=== PATIENT | male | born 1990 | race Caucasian/White ===

== ENCOUNTER → 2016-07-29 | Outpatient (CLI) | payer OTHER | LOC: RAD 13:19 | PROVIDERS: ATTEND Family Medicine | DX: M54.6 Pain in thoracic spine (principal) ==

== ENCOUNTER → 2022-11-02 | Outpatient (CLI) | payer SELFPAY ==
[~2022-11-02] MED LIST: AMLO-251 PO; AMOX875T2 PO; ONDA-105 PO; OXYC1TAB16 PO
[2022-11-02 13:53] LABS: BASOPHILS # (AUTO) 0.1 10^3/uL (0.0-0.1); BASOPHILS % (AUTO) 1 % (0-10); EOSINOPHILS # (AUTO) 0.3 10^3/uL (0.0-0.3); EOSINOPHILS % (AUTO) 2 % (0-10); HEMATOCRIT 44 % (40-54); HEMOGLOBIN 15.2 g/dL (13.3-17.7); LYMPHOCYTES % (AUTO) 17 % (12-44); MEAN CORPUSCULAR HEMOGLOBIN 29 pg (25-34); MEAN CORPUSCULAR HGB CONC 35 g/dL (32-36); MEAN CORPUSCULAR VOLUME 84 fL (80-99); MONOCYTES # (AUTO) 0.9 10^3/uL (0.0-1.0); MONOCYTES % (AUTO) 5 % (0-12); NEUTROPHILS # (AUTO) 13.3 10^3/uL (1.8-7.8); NEUTROPHILS % (AUTO) 75 % (42-75); PLATELET COUNT 392 10^3/uL (130-400); WHITE BLOOD COUNT 17.8 10^3/uL (4.3-11.0)
[2022-11-02 14:13] LABS: BILIRUBIN,TOTAL 0.7 MG/DL (0.1-1.0); CALCIUM 9.6 MG/DL (8.5-10.1); CREATININE SERUM 0.94 MG/DL (0.60-1.30); POTASSIUM 3.3 MMOL/L (3.6-5.0); TOTAL PROTEIN 7.4 GM/DL (6.4-8.2)
[2022-11-02 14:14] LABS: BAND NEUTROPHILS 1 %; EOSINOPHILS % (MANUAL) 2 %; LYMPHOCYTES % (MANUAL) 15 %; MONOCYTES % (MANUAL) 6 %; NEUTROPHILS % (MANUAL) 76 %
[2022-11-02 14:15] LABS: RBC MORPH NORMAL
== END ==
LOC: LAB 13:23
PROVIDERS: ATTEND Surgery
DX: K85.90 Acute pancreatitis without necrosis or infection, unspecified (principal); Z98.890 Other specified postprocedural states
CPT/HCPCS: 36415; 80053; 82150; 83690; 85007; 85027

== ENCOUNTER → 2022-11-05 | Outpatient (CLI) | payer SELFPAY ==
[2022-11-05 12:08] LABS: BASOPHILS # (AUTO) 0.1 10^3/uL (0.0-0.1); BASOPHILS % (AUTO) 1 % (0-10); EOSINOPHILS # (AUTO) 0.2 10^3/uL (0.0-0.3); EOSINOPHILS % (AUTO) 2 % (0-10); HEMATOCRIT 45 % (40-54); LYMPHOCYTES # (AUTO) 2.4 10^3/uL (1.0-4.0); LYMPHOCYTES % (AUTO) 20 % (12-44); MEAN CORPUSCULAR HEMOGLOBIN 28 pg (25-34); MEAN CORPUSCULAR HGB CONC 33 g/dL (32-36); MEAN CORPUSCULAR VOLUME 86 fL (80-99); MEAN PLATELET VOLUME 10.1 fL (9.0-12.2); MONOCYTES % (AUTO) 8 % (0-12); NEUTROPHILS # (AUTO) 8.1 10^3/uL (1.8-7.8); NEUTROPHILS % (AUTO) 68 % (42-75); PLATELET COUNT 360 10^3/uL (130-400); WHITE BLOOD COUNT 11.9 10^3/uL (4.3-11.0)
[2022-11-05 12:17] LABS: ALBUMIN 4.1 GM/DL (3.2-4.5)
[2022-11-05 12:19] LABS: CALCIUM 9.7 MG/DL (8.5-10.1)
[2022-11-05 12:20] LABS: TOTAL PROTEIN 6.9 GM/DL (6.4-8.2)
[2022-11-05 12:22] LABS: BILIRUBIN,TOTAL 0.8 MG/DL (0.1-1.0)
[2022-11-05 12:24] LABS: CREATININE SERUM 0.89 MG/DL (0.60-1.30)
== END ==
LOC: LAB 11:43
PROVIDERS: ATTEND Surgery
DX: Z98.890 Other specified postprocedural states (principal)
CPT/HCPCS: 36415; 80053; 82150; 83690; 85025